=== PATIENT | female | born 1970 ===

== ENCOUNTER → 2020-05-06 | Outpatient (CLI) | payer OTHER ==
[2020-05-06 10:54] LABS: Urine Bacteria NONE SEEN /hpf (None Seen); Urine Blood Negative /uL (Negative); Urine Specific Gravity 1.003 (1.001-1.035); Urine WBC 1 /hpf (0 - 5)
[2020-05-06 11:06] LABS: Basophils # (auto) 0 10 ^3/uL (0-0.2); Basophils % (auto) 0.8 % (0.0-2.0); Eosinophils # (auto) 0.2 10 ^3/uL (0-0.8); Eosinophils % (auto) 3.2 % (0.0-7.0); Hematocrit 40.7 % (36.0-46.0); Hemoglobin 13.6 g/dL (12.2-16.2); Lymphocytes # (auto) 2.7 10 ^3/uL (0.4-5.4); Lymphocytes % (auto) 47.7 % (10.0-50.0); Mean Corpuscular Hemoglobin 29.8 pg (28.0-32.0); Mean Corpuscular Hgb Conc. 33.3 g/dL (32.0-36.0); Mean Corpuscular Volume 89.4 fL (80.0-100.0); Monocytes # (auto) 0.4 10 ^3/uL (0-1.3); Monocytes % (auto) 7.7 % (0.0-12.0); Neutrophils # (auto) 2.3 10 ^3/uL (1.6-8.6); Neutrophils % (auto) 40.6 % (37.0-80.0); Nucleated Red Blood Cells % 0.1 %; Platelet Count (auto) 379 10^3/uL (140-450); Red Blood Cells 4.56 10^6/uL (4.0-5.20); Red Cell Distribution Width 14.5 % (11.8-14.3); White Blood Cell 5.7 10^3/uL (4.4-10.8)
[2020-05-06 11:55] LABS: BUN/Creatinine Ratio 19.6; Bilirubin, Total 0.4 mg/dL (0.2-1.0); Calcium 9.4 mg/dL (8.5-10.1); Total Protein 8.2 g/dL (6.4-8.2)
[2020-05-06 13:25] LABS: Follicle Stimulating Hormone 59.72 IU/L (SEE BELOW)
== END | disposition home or self-care (01) ==
LOC: LAB 09:54
PROVIDERS: ATTEND Internal Medicine
DX: E78.5 Hyperlipidemia, unspecified (principal); M54.9 Dorsalgia, unspecified
CPT/HCPCS: 36415; 80053; 80061; 81001; 82670; 83001; 83002; 83036; 84144; 85025; 85379

== ENCOUNTER 2024-09-18 09:00 | Outpatient (CLI) | payer OTHER ==
[2024-09-18 09:26] LABS: Hematocrit 40.7 % (36.0-46.0); Hemoglobin 13.7 g/dL (12.2-16.2); Mean Corpuscular Hemoglobin 29.8 pg (28.0-32.0); Mean Corpuscular Volume 88.1 fL (80.0-100.0); Nucleated Red Blood Cells % 0.1 %
[2024-09-18 09:53] LABS: Alanine Aminotransferase 29 U/L (7-40); Alkaline Phosphatase 102 U/L (46-116); Anion Gap 8 (5-15); BUN/Creatinine Ratio 23.1 (10.0-20.0); Blood Urea Nitrogen 15 mg/dL (9-23); Calcium 10.3 mg/dL (8.7-10.4); Carbon Dioxide 28 mmol/L (20-31); Glucose 102 mg/dL (74-106); Potassium 4.8 mmol/L (3.5-5.1); Total Protein 7.7 g/dL (5.7-8.2); Triglycerides 56 mg/dL (< 150)
[2024-09-18 09:54] LABS: Albumin 5.0 g/dL (3.2-4.8); Bilirubin, Total 0.5 mg/dL (0.2-1.0); Chloride 110 mmol/L (98-107); Cholesterol 260 mg/dL (< 200); HDL Cholesterol 68 mg/dL (40-59); Sodium 146 mmol/L (136-145)
== END 2024-09-18 17:00 | disposition home or self-care (01) ==
LOC: LAB 09:00
PROVIDERS: ATTEND Nurse Practitioner Family
DX: E78.5 Hyperlipidemia, unspecified (principal); E66.9 Obesity, unspecified; Z00.01 Encounter for general adult medical examination with abnormal findings
CPT/HCPCS: 36415; 80053; 80061; 82306; 84443; 85025